=== PATIENT | male | born 1930 | race Hispanic/Latino ===

== ENCOUNTER 2017-10-12 10:44 | Inpatient (IN) | payer OTHER ==
[~2017-10-12] VITALS: Ht 154.9 cm; Wt 64.3 kg
[2017-10-12 11:17] LABS: BASOPHILS % (AUTO) 0.8 % (0.0-5.0); EOSINOPHILS % (AUTO) 2.9 % (0.0-8.0); HEMATOCRIT 36.8 % (42-54); LYMPHOCYTES % (AUTO) 31.1 % (21.0-51.0); MEAN CORPUSCULAR HEMOGLOBIN 30.2 pg (27.0-33.0); MEAN CORPUSCULAR HGB CONC 35.1 g/dL (32.0-36.0); MEAN CORPUSCULAR VOLUME 86.1 fL (79-99); MONOCYTES % (AUTO) 7.1 % (3.0-13.0); NEUTROPHILS % (AUTO) 58.1 % (40.0-77.0); PLATELET COUNT (AUTO) 219 K/uL (130-400); RED BLOOD CELL COUNT(AUTO) 4.27 MIL/uL (4.50-6.20); RED CELL DISTRIBUTION WIDTH 13.5 % (11.0-15.5); WHITE BLOOD COUNT (AUTO) 7.5 K/uL (4.8-10.8)
[2017-10-12 11:29] LABS: CREATININE 1.5 mg/dL (0.5-1.5); POTASSIUM 4.5 mmol/L (3.5-5.1)
[2017-10-12 11:34] LABS: ALBUMIN 3.3 g/dL (3.5-5.0); BILIRUBIN,TOTAL 0.6 mg/dL (0.2-1.0)
[2017-10-12 11:39] LABS: INR 1.05 (0.85-1.15); PARTIAL THROMBOPLASTIN TIME 25.1 SEC (26.3-35.5)
[2017-10-12 15:20] VITALS: BP 165/79
[2017-10-12 15:39] LABS: HEMATOCRIT 33.3 % (42-54)
[2017-10-12] MEDS ORDERED: LINA5TAB PO (16:09)
[2017-10-12] MEDS ORDERED: MULT-1258 PO (16:09)
[2017-10-12] MEDS ORDERED: LEVO25TA54 PO (16:09)
[2017-10-12] MEDS ORDERED: GABA-531 PO (16:09)
[2017-10-12] MEDS ORDERED: METO25TA6 PO (16:09)
[2017-10-12] MEDS ORDERED: [UNRECOGNIZED DRUG - OTHER] (16:09)
[2017-10-12] MEDS: PANTOPRAZOLE 40 MG/VIAL IVP SCH (18:53)
[2017-10-12 20:00] VITALS: BP 139/80
[2017-10-12 21:29] LABS: HEMATOCRIT 34.7 % (42-54)
[2017-10-13] VITALS (7 sets, daily range): BP systolic 108–162; BP diastolic 55–86
[2017-10-13] MEDS ORDERED: ACETAMINOPHEN 325 MG TAB PO PRN (00:15)
[2017-10-13] MEDS ORDERED: ONDANSETRON HCL 4 MG/2 ML VIAL IV PRN (00:15)
[2017-10-13] MEDS ORDERED: SODIUM CHLORIDE 0.9% 100 ML IV ONE (00:33)
[2017-10-13] MEDS: LACTATED RINGERS 1000ML 1,000 ML IV SCH ×2 (00:58→09:49)
[2017-10-13] MEDS: PANTOPRAZOLE 40 MG/VIAL IVP SCH ×2 (01:58→19:15)
[2017-10-13 03:30] LABS: HEMATOCRIT 31.9 % (42-54)
[2017-10-13] MEDS: INSULIN LISPRO 100 UNIT/ML 3ML SQ SCH ×4 (09:48→21:00)
[2017-10-13] MEDS: PANTOPRAZOLE SODIUM 80 MG in SODIUM CHLORIDE 0.9% 100 ML IV SCH ×2 (09:49→23:52)
[2017-10-13 15:41] LABS: HEMATOCRIT 31.9 % (42-54)
[2017-10-13] MEDS ORDERED: PEG 3350/NA SULF,BICARB,CL/KCL 4000 ML SOLN PO SCH (17:00)
[2017-10-13 21:45] LABS: HEMATOCRIT 29.2 % (42-54)
[2017-10-14] VITALS (17 sets, daily range): BP systolic 121–182; BP diastolic 52–94
[2017-10-14] MEDS: LACTATED RINGERS 1000ML 1,000 ML IV SCH ×4 (05:10→17:24)
[2017-10-14 06:27] LABS: BASOPHILS % (AUTO) 0.4 % (0.0-5.0); EOSINOPHILS % (AUTO) 2.2 % (0.0-8.0); HEMATOCRIT 27.1 % (42-54); LYMPHOCYTES % (AUTO) 36.8 % (21.0-51.0); MEAN CORPUSCULAR HGB CONC 35.1 g/dL (32.0-36.0); MEAN CORPUSCULAR VOLUME 85.5 fL (79-99); MONOCYTES % (AUTO) 7.1 % (3.0-13.0); NEUTROPHILS % (AUTO) 53.5 % (40.0-77.0); NUCLEATED RED BLOOD CELLS 0.1 % (0.0-0.19); PLATELET COUNT (AUTO) 187 K/uL (130-400); RED BLOOD CELL COUNT(AUTO) 3.18 MIL/uL (4.50-6.20); RED CELL DISTRIBUTION WIDTH 13.5 % (11.0-15.5); WHITE BLOOD COUNT (AUTO) 6.3 K/uL (4.8-10.8)
[2017-10-14 06:34] LABS: CREATININE 1.2 mg/dL (0.5-1.5); POTASSIUM 3.9 mmol/L (3.5-5.1)
[2017-10-14] MEDS: PANTOPRAZOLE SODIUM 80 MG in SODIUM CHLORIDE 0.9% 100 ML IV SCH (08:03)
[2017-10-14] MEDS: INSULIN LISPRO 100 UNIT/ML 3ML SQ SCH ×4 (08:06→21:45)
[2017-10-14] MEDS ORDERED: MIDAZOLAM HCL 1 MG/ML 2ML VIAL ONE (10:07)
[2017-10-14] MEDS ORDERED: MEPERIDINE-PF 50 MG/ML SYG ONE (10:07)
[2017-10-14] MEDS: PANTOPRAZOLE SODIUM 80 MG in SODIUM CHLORIDE 0.9% 100 ML IV NR ×2 (12:25→23:07)
[2017-10-14 15:53] LABS: HEMATOCRIT 23.9 % (42-54); MEAN CORPUSCULAR HEMOGLOBIN 29.8 pg (27.0-33.0); MEAN CORPUSCULAR HGB CONC 34.8 g/dL (32.0-36.0); MEAN CORPUSCULAR VOLUME 85.8 fL (79-99); PLATELET COUNT (AUTO) 163 K/uL (130-400); RED BLOOD CELL COUNT(AUTO) 2.79 MIL/uL (4.50-6.20); RED CELL DISTRIBUTION WIDTH 13.4 % (11.0-15.5); WHITE BLOOD COUNT (AUTO) 6.8 K/uL (4.8-10.8)
[2017-10-14] MEDS ORDERED: DiphenhydrAMINE HCL 50 MG/ML VIAL ONE (20:31)
[2017-10-14] MEDS ORDERED: DiphenhydrAMINE HCL 50 MG/ML VIAL IV PRN (21:15)
[2017-10-14] MEDS: HYDRALAZINE HCL 20 MG/ML VIAL IV PRN (22:28)
[2017-10-15] VITALS (7 sets, daily range): BP systolic 122–180; BP diastolic 69–103
[2017-10-15] MEDS: LACTATED RINGERS 1000ML 1,000 ML IV SCH (01:00)
[2017-10-15] MEDS: INSULIN LISPRO 100 UNIT/ML 3ML SQ SCH ×4 (06:29→21:00)
[2017-10-15 06:30] LABS: HEMATOCRIT 31.8 % (42-54); MEAN CORPUSCULAR HEMOGLOBIN 29.2 pg (27.0-33.0); MEAN CORPUSCULAR HGB CONC 34.2 g/dL (32.0-36.0); MEAN CORPUSCULAR VOLUME 85.2 fL (79-99); PLATELET COUNT (AUTO) 177 K/uL (130-400); RED BLOOD CELL COUNT(AUTO) 3.73 MIL/uL (4.50-6.20); RED CELL DISTRIBUTION WIDTH 13.7 % (11.0-15.5); WHITE BLOOD COUNT (AUTO) 6.9 K/uL (4.8-10.8)
[2017-10-15 06:39] LABS: CREATININE 1.1 mg/dL (0.5-1.5); POTASSIUM 3.4 mmol/L (3.5-5.1)
[2017-10-15] MEDS: PANTOPRAZOLE SODIUM 80 MG in SODIUM CHLORIDE 0.9% 100 ML IV NR ×2 (09:06→16:34)
[2017-10-15] MEDS ORDERED: MAGNESIUM CITRATE 296 ML SOLUTION PO SCH (12:00)
[2017-10-15] MEDS ORDERED: METF10004 PO (13:03)
[2017-10-15] MEDS ORDERED: AEC81 PO (13:03)
[2017-10-15] MEDS ORDERED: GLIP10TA9 PO (13:03)
[2017-10-15] MEDS ORDERED: AMLO2.5T PO (13:03)
[2017-10-15] MEDS ORDERED: LOSA100T29 PO (13:03)
[2017-10-15] MEDS: HYDRALAZINE HCL 20 MG/ML VIAL IV PRN (13:04)
[2017-10-15 14:17] LABS: MEAN CORPUSCULAR HEMOGLOBIN 29.7 pg (27.0-33.0); MEAN CORPUSCULAR HGB CONC 34.7 g/dL (32.0-36.0); MEAN CORPUSCULAR VOLUME 85.7 fL (79-99); NUCLEATED RED BLOOD CELLS 0.1 % (0.0-0.19); PLATELET COUNT (AUTO) 225 K/uL (130-400); RED BLOOD CELL COUNT(AUTO) 4.09 MIL/uL (4.50-6.20); RED CELL DISTRIBUTION WIDTH 13.7 % (11.0-15.5); WHITE BLOOD COUNT (AUTO) 9.5 K/uL (4.8-10.8)
[2017-10-15] MEDS: GABAPENTIN 300 MG CAPSULE PO SCH ×2 (18:26→20:21)
[2017-10-15] MEDS: METFORMIN HCL 500 MG TABLET PO SCH (18:26)
[2017-10-15] MEDS: METOPROLOL TARTRATE 25 MG TAB PO SCH (20:21)
[2017-10-16] VITALS (25 sets, daily range): BP systolic 79–150; BP diastolic 30–79
[2017-10-16 04:33] LABS: BASOPHILS % (AUTO) 0.8 % (0.0-5.0); EOSINOPHILS % (AUTO) 3.5 % (0.0-8.0); HEMATOCRIT 34.8 % (42-54); LYMPHOCYTES % (AUTO) 36.4 % (21.0-51.0); MEAN CORPUSCULAR HEMOGLOBIN 30.4 pg (27.0-33.0); MEAN CORPUSCULAR HGB CONC 35.5 g/dL (32.0-36.0); MEAN CORPUSCULAR VOLUME 85.8 fL (79-99); NEUTROPHILS % (AUTO) 50.3 % (40.0-77.0); NUCLEATED RED BLOOD CELLS 0.1 % (0.0-0.19); PLATELET COUNT (AUTO) 58 K/uL (130-400); RED BLOOD CELL COUNT(AUTO) 4.05 MIL/uL (4.50-6.20); RED CELL DISTRIBUTION WIDTH 13.7 % (11.0-15.5); WHITE BLOOD COUNT (AUTO) 7.1 K/uL (4.8-10.8)
[2017-10-16 04:47] LABS: CREATININE 1.1 mg/dL (0.5-1.5); POTASSIUM 3.8 mmol/L (3.5-5.1)
[2017-10-16] MEDS: INSULIN LISPRO 100 UNIT/ML 3ML SQ SCH ×4 (06:11→21:00)
[2017-10-16] MEDS: METFORMIN HCL 500 MG TABLET PO SCH ×2 (06:23→16:30)
[2017-10-16] MEDS: LEVOTHYROXINE 25 MCG TABLET PO SCH (06:23)
[2017-10-16] MEDS: METOPROLOL TARTRATE 25 MG TAB PO SCH ×2 (08:28→20:46)
[2017-10-16] MEDS: MULTIVITAMIN TABLET PO SCH (08:30)
[2017-10-16] MEDS: AMLODIPINE BESYLATE 2.5 MG TAB PO SCH (08:30)
[2017-10-16] MEDS: GLIPIZIDE 5 MG TABLET PO SCH (08:30)
[2017-10-16] MEDS: LINAGLIPTIN 5 MG TABLET PO SCH (08:30)
[2017-10-16] MEDS: LOSARTAN 100 MG TABLET PO SCH (08:30)
[2017-10-16] MEDS: GABAPENTIN 300 MG CAPSULE PO SCH ×3 (08:30→20:46)
[2017-10-16] MEDS: LACTATED RINGERS 1000ML 1,000 ML IV SCH (10:01)
[2017-10-16 10:25] LABS: BASOPHILS % (AUTO) 0.4 % (0.0-5.0); EOSINOPHILS % (AUTO) 3.2 % (0.0-8.0); HEMATOCRIT 34.1 % (42-54); LYMPHOCYTES % (AUTO) 30.8 % (21.0-51.0); MEAN CORPUSCULAR HEMOGLOBIN 29.7 pg (27.0-33.0); MEAN CORPUSCULAR HGB CONC 34.7 g/dL (32.0-36.0); MEAN CORPUSCULAR VOLUME 85.6 fL (79-99); MONOCYTES % (AUTO) 7.5 % (3.0-13.0); NEUTROPHILS % (AUTO) 58.1 % (40.0-77.0); PLATELET COUNT (AUTO) 195 K/uL (130-400); RED BLOOD CELL COUNT(AUTO) 3.98 MIL/uL (4.50-6.20); RED CELL DISTRIBUTION WIDTH 13.7 % (11.0-15.5); WHITE BLOOD COUNT (AUTO) 7.1 K/uL (4.8-10.8)
[2017-10-16] MEDS ORDERED: SODIUM CHLORIDE 0.9% 1000ML 1,000 ML IV ONE (12:59)
[2017-10-16] MEDS ORDERED: NEOSTIGMINE 5MG/5ML SYR IV ONE (13:54)
[2017-10-16] MEDS ORDERED: PROPOFOL 10 MG/ML 20ML VIAL IV ONE ×2 (13:54→16:36)
[2017-10-16] MEDS ORDERED: MIDAZOLAM HCL 1 MG/ML 2ML VIAL ONE ×3 (13:54→16:36)
[2017-10-16] MEDS ORDERED: DEXAMETHASONE SOD PHOSPHATE 10MG/ML 1ML VIAL ONE ×2 (13:54→16:35)
[2017-10-16] MEDS ORDERED: GLYCOPYRROLATE 0.2 MG/ML 5 ML VIAL ONE (13:54)
[2017-10-16] MEDS ORDERED: FENTANYL CITRATE PF 50 MCG/1 ML 2ML VIAL ONE ×2 (13:54→16:36)
[2017-10-16] MEDS ORDERED: LIDOCAINE PF 2% 5ML ABBOJECT ONE ×2 (13:54→16:35)
[2017-10-16] MEDS ORDERED: ROPIVACAINE 0.5% 5MG/ML 30ML IJ ONE (14:17)
[2017-10-16] MEDS ORDERED: ALBUMIN (HUMAN) 5% 250 ML IV ONE (14:33)
[2017-10-16] MEDS ORDERED: EPHEDRINE SULFATE 50 MG/ML AMPULE ONE (14:35)
[2017-10-16] MEDS: CEFOXITIN SODIUM 2 GM VIAL ONE (14:40)
[2017-10-16] MEDS: SODIUM CHLORIDE 0.9% 1000ML 1,000 ML IV SCH ×2 (16:21→20:47)
[2017-10-16] MEDS ORDERED: ROCURONIUM BROMIDE 10MG/1ML 5ML VL ONE (16:35)
[2017-10-16] MEDS ORDERED: LIDOCAINE HCL 4% LTA SOL 4 ML VIAL ONE (16:35)
[2017-10-16] MEDS ORDERED: LIDOCAINE HCL MPF 1% 5ML VIAL ONE (16:35)
[2017-10-16] MEDS ORDERED: MEPERIDINE-PF 50 MG/ML SYG ONE (16:52)
[2017-10-16] MEDS ORDERED: HEPARIN SODIUM 1000UNIT/ML 10ML VIAL ONE (16:54)
[2017-10-16] MEDS ORDERED: ONDANSETRON HCL 4 MG/2 ML VIAL IVP PRN ×2 (19:30)
[2017-10-16] MEDS ORDERED: NALOXONE HCL 0.4 MG/1 ML ML IVP PRN (19:30)
[2017-10-16] MEDS ORDERED: PROMETHAZINE HCL 25 MG/ML 1ML AMPULE IM PRN (19:30)
[2017-10-16] MEDS ORDERED: HYDROCODONE/ACETAMINOPHEN 5/325 MG TAB PO PRN (19:30)
[2017-10-16] MEDS ORDERED: METOCLOPRAMIDE 10 MG/2 ML VIAL IVP PRN (19:30)
[2017-10-16] MEDS ORDERED: ROPIVACAINE 0.2%200ML EPIDURAL 200 ML EP SCH (19:30)
[2017-10-16] MEDS ORDERED: EPHEDRINE SULFATE 50 MG/ML AMPULE IVP PRN (19:30)
[2017-10-16] MEDS ORDERED: ONDANSETRON HCL 4 MG/2 ML 8 MG in SODIUM CHLORIDE 0.9% 50 ML IVP NR (19:30)
[2017-10-16] MEDS ORDERED: DiphenhydrAMINE HCL 50 MG/ML VIAL IVP PRN (19:30)
[2017-10-16] MEDS: CEFOXITIN SODIUM 1 GM VIAL IVP SCH (20:46)
[2017-10-16] MEDS ORDERED: CEFOXITIN 1GM+NS 100ML 100 ML IV SCH (21:00)
[2017-10-17] VITALS: BP 101/52
[2017-10-17] MEDS ORDERED: MORPHINE SULFATE 4 MG/1ML SYG ONE ×4 (02:01→22:55)
[2017-10-17] MEDS: CEFOXITIN SODIUM 1 GM VIAL IVP SCH ×2 (02:55→08:53)
[2017-10-17 04:03] VITALS: BP 133/56
[2017-10-17 04:37] LABS: HEMATOCRIT 32.4 % (42-54); MEAN CORPUSCULAR HEMOGLOBIN 29.2 pg (27.0-33.0); MEAN CORPUSCULAR VOLUME 88.6 fL (79-99); PLATELET COUNT (AUTO) 210 K/uL (130-400); RED BLOOD CELL COUNT(AUTO) 3.66 MIL/uL (4.50-6.20); RED CELL DISTRIBUTION WIDTH 14.1 % (11.0-15.5); WHITE BLOOD COUNT (AUTO) 15.8 K/uL (4.8-10.8)
[2017-10-17 04:48] LABS: CREATININE 1.9 mg/dL (0.5-1.5); MAGNESIUM 1.6 mg/dL (1.80-2.40); POTASSIUM 4.1 mmol/L (3.5-5.1)
[2017-10-17] MEDS: LEVOTHYROXINE 25 MCG TABLET PO SCH (07:30)
[2017-10-17] MEDS: METFORMIN HCL 500 MG TABLET PO SCH ×2 (07:30→16:30)
[2017-10-17] MEDS: INSULIN LISPRO 100 UNIT/ML 3ML SQ SCH ×3 (07:30→17:34)
[2017-10-17 08:16] VITALS: BP 148/61
[2017-10-17] MEDS: GABAPENTIN 300 MG CAPSULE PO SCH ×2 (08:17→14:00)
[2017-10-17] MEDS: LOSARTAN 100 MG TABLET PO SCH (08:17)
[2017-10-17] MEDS: AMLODIPINE BESYLATE 2.5 MG TAB PO SCH (08:17)
[2017-10-17] MEDS: METOPROLOL TARTRATE 25 MG TAB PO SCH (08:17)
[2017-10-17] MEDS: MULTIVITAMIN TABLET PO SCH (08:17)
[2017-10-17] MEDS: GLIPIZIDE 5 MG TABLET PO SCH (08:17)
[2017-10-17] MEDS: LINAGLIPTIN 5 MG TABLET PO SCH (08:18)
[2017-10-17] MEDS ORDERED: SODIUM CHLORIDE 0.9% 500ML 500 ML IV ONE (10:00)
[2017-10-17] MEDS ORDERED: MAGNESIUM 2GM PREMIX 50ML 50 ML IV SCH (10:00)
[2017-10-17] MEDS: ROPIVACAINE 0.2% 100ML VIAL 100 ML IJ SCH (10:42)
[2017-10-17 11:41] VITALS: BP 147/65
[2017-10-17 16:00] VITALS: BP 113/54
[2017-10-17] MEDS: SODIUM CHLORIDE 0.9% 1000ML 1,000 ML IV SCH (17:29)
[2017-10-17 19:00] VITALS: BP 95/50
[2017-10-17] MEDS ORDERED: ROPIVACAINE 0.2%200ML EPIDURAL 200 ML EP SCH (21:00)
[2017-10-17] MEDS: INSULIN GLARGINE 100 UNITS/ML 10 ML VIAL SQ SCH (23:06)
[2017-10-18] VITALS (7 sets, daily range): BP systolic 135–172; BP diastolic 62–84
[2017-10-18] MEDS: ROPIVACAINE 0.2% 100ML VIAL 100 ML IJ SCH ×2 (01:46→13:37)
[2017-10-18] MEDS ORDERED: MAGNESIUM 2GM PREMIX 50ML 50 ML IV ONE (03:04)
[2017-10-18] MEDS ORDERED: MAGNESIUM 2GM PREMIX 50ML 50 ML IV PRN (03:15)
[2017-10-18 04:33] LABS: HEMATOCRIT 31.6 % (42-54); MEAN CORPUSCULAR HEMOGLOBIN 29.8 pg (27.0-33.0); MEAN CORPUSCULAR HGB CONC 33.3 g/dL (32.0-36.0); MEAN CORPUSCULAR VOLUME 89.5 fL (79-99); PLATELET COUNT (AUTO) 213 K/uL (130-400); RED BLOOD CELL COUNT(AUTO) 3.53 MIL/uL (4.50-6.20)
[2017-10-18 04:57] LABS: CREATININE 2.3 mg/dL (0.5-1.5); MAGNESIUM 2.5 mg/dL (1.80-2.40); POTASSIUM 4.2 mmol/L (3.5-5.1)
[2017-10-18] MEDS: SODIUM CHLORIDE 0.9% 1000ML 1,000 ML IV SCH ×2 (05:00→18:44)
[2017-10-18] MEDS ORDERED: PHARMACY COMMUNICATION MISC SCH (10:00)
[2017-10-18] MEDS: [UNRECOGNIZED DRUG - OTHER] SQ SCH ×2 (12:34→18:00)
[2017-10-18] MEDS: SODIUM BICARBONATE 650 MG TAB PO SCH (20:10)
[2017-10-18] MEDS: INSULIN GLARGINE 100 UNITS/ML 10 ML VIAL SQ SCH (21:00)
[2017-10-18] MEDS ORDERED: MORPHINE SULFATE 4 MG/1ML SYG ONE (21:44)
[2017-10-19] MEDS: ROPIVACAINE 0.2% 100ML VIAL 100 ML IJ SCH ×2 (01:00→08:36)
[2017-10-19] MEDS: HYDRALAZINE HCL 20 MG/ML VIAL IV PRN (01:24)
[2017-10-19] MEDS ORDERED: MORPHINE SULFATE 4 MG/1ML SYG ONE (01:38)
[2017-10-19] MEDS ORDERED: HYDROMORPHONE 1 MG/1 ML AMP IVP ONE (02:00)
[2017-10-19 04:00] VITALS: BP 147/78
[2017-10-19] MEDS ORDERED: HYDROMORPHONE 1 MG/1 ML AMP ONE (04:09)
[2017-10-19 04:56] LABS: MEAN CORPUSCULAR HGB CONC 34.2 g/dL (32.0-36.0); MEAN CORPUSCULAR VOLUME 87.7 fL (79-99); PLATELET COUNT (AUTO) 207 K/uL (130-400); RED BLOOD CELL COUNT(AUTO) 3.31 MIL/uL (4.50-6.20); WHITE BLOOD COUNT (AUTO) 10.4 K/uL (4.8-10.8)
[2017-10-19 05:14] LABS: ALBUMIN 2.2 g/dL (3.5-5.0); BILIRUBIN,TOTAL 0.3 mg/dL (0.2-1.0); CREATININE 1.7 mg/dL (0.5-1.5); MAGNESIUM 2.2 mg/dL (1.80-2.40); PHOSPHORUS 2.1 mg/dL (2.5-4.9); POTASSIUM 3.9 mmol/L (3.5-5.1); TOTAL PROTEIN, SERUM 5.3 g/dL (6.0-8.3); URIC ACID 6.6 mg/dL (2.6-7.2)
[2017-10-19 05:37] LABS: BAND NEUTROPHILS % (MANUAL) 1 % (0-2); BASOPHILS % (MANUAL) 1 % (0-2); LYMPHOCYTES % (MANUAL) 3 % (22-44); MAN.DIFF COMMENT-IMPRESSION MANUAL DIFFERENTIAL; MONOCYTES % (MANUAL) 5 % (2-9); PLATELET MORPHOLOGY COMMENT ADEQUATE; REACTIVE LYMPHOCYTES 1 % (0-0); SEGMENTED NEUTROPHILS % 89 % (40-70)
[2017-10-19] MEDS: [UNRECOGNIZED DRUG - OTHER] SQ SCH ×4 (06:00→18:00)
[2017-10-19] MEDS: SODIUM CHLORIDE 0.9% 1000ML 1,000 ML IV SCH ×2 (06:02→19:11)
[2017-10-19 08:37] VITALS: BP 166/72
[2017-10-19] MEDS: SODIUM BICARBONATE 650 MG TAB PO SCH ×2 (09:00→20:18)
[2017-10-19] MEDS: THIAMINE HCL 100 MG TABLET PO SCH (09:00)
[2017-10-19] MEDS: FOLIC ACID/VITAMIN B COMP W-C 1 MG CAPSULE PO SCH (09:00)
[2017-10-19 12:31] VITALS: BP 93/82
[2017-10-19 17:08] VITALS: BP 180/88
[2017-10-19 19:29] VITALS: BP 152/98
[2017-10-19] MEDS: INSULIN GLARGINE 100 UNITS/ML 10 ML VIAL SQ SCH (20:57)
[2017-10-19 23:23] VITALS: BP 137/83
[2017-10-20] VITALS (7 sets, daily range): BP systolic 155–189; BP diastolic 73–107
[2017-10-20] MEDS: HYDROCODONE/ACETAMINOPHEN 5/325 MG TAB PO PRN (00:25)
[2017-10-20 00:56] LABS: CREATININE,URINE RANDOM 98 mg/dL (30-135); SODIUM,URINE RANDOM 144 mmol/l (40-220)
[2017-10-20] MEDS ORDERED: HYDROMORPHONE 1 MG/1 ML AMP ONE (02:41)
[2017-10-20] MEDS ORDERED: HYDROMORPHONE 1 MG/1 ML AMP IVP ONE (02:45)
[2017-10-20] MEDS: SODIUM CHLORIDE 0.9% 1000ML 1,000 ML IV SCH ×2 (03:54→15:41)
[2017-10-20] MEDS: HYDRALAZINE HCL 20 MG/ML VIAL IV PRN ×3 (03:54→23:34)
[2017-10-20 04:49] LABS: HEMATOCRIT 31.2 % (42-54); MEAN CORPUSCULAR HEMOGLOBIN 30.7 pg (27.0-33.0); MEAN CORPUSCULAR HGB CONC 34.7 g/dL (32.0-36.0); MEAN CORPUSCULAR VOLUME 88.6 fL (79-99); NUCLEATED RED BLOOD CELLS 0.1 % (0.0-0.19); PLATELET COUNT (AUTO) 268 K/uL (130-400); RED BLOOD CELL COUNT(AUTO) 3.53 MIL/uL (4.50-6.20); WHITE BLOOD COUNT (AUTO) 12.6 K/uL (4.8-10.8)
[2017-10-20 04:57] LABS: CREATININE 1.6 mg/dL (0.5-1.5); POTASSIUM 3.5 mmol/L (3.5-5.1)
[2017-10-20] MEDS: [UNRECOGNIZED DRUG - OTHER] SQ SCH ×5 (06:44→23:14)
[2017-10-20] MEDS ORDERED: MORPHINE SULFATE 4 MG/1ML SYG ONE ×2 (07:54→14:04)
[2017-10-20] MEDS: MORPHINE SULFATE 2 MG/ML 1ML SYG IVP PRN ×2 (07:56→14:51)
[2017-10-20] MEDS: METOPROLOL TARTRATE 25 MG TAB PO SCH ×3 (09:00→20:46)
[2017-10-20] MEDS ORDERED: METOPROLOL TARTRATE 25 MG TAB PO SCH (09:00)
[2017-10-20] MEDS: METOPROLOL TARTRATE 50 MG TAB PO SCH (10:07)
[2017-10-20] MEDS: SODIUM BICARBONATE 650 MG TAB PO SCH ×2 (10:07→20:46)
[2017-10-20] MEDS: THIAMINE HCL 100 MG TABLET PO SCH (10:07)
[2017-10-20] MEDS: FOLIC ACID/VITAMIN B COMP W-C 1 MG CAPSULE PO SCH (10:07)
[2017-10-20] MEDS ORDERED: POTASSIUM CHLORIDE 20 MEQ ERTAB PO ONE (14:03)
[2017-10-20] MEDS: AMLODIPINE BESYLATE 2.5 MG TAB PO SCH (14:06)
[2017-10-20] MEDS: FUROSEMIDE 10 MG/ML 2ML VIAL IV SCH (14:06)
[2017-10-20] MEDS ORDERED: POTASSIUM CHLORIDE 10% ELIXIR 20 MEQ/15 ML UDCUP PO PRN (14:15)
[2017-10-20] MEDS ORDERED: LIDOCAINE HCL-MPF 1% 2ML VIAL IVP PRN ×2 (14:15)
[2017-10-20] MEDS ORDERED: POTASSIUM CHLORIDE 20MEQ/100ML 100 ML IV PRN ×2 (14:15)
[2017-10-20] MEDS ORDERED: POTASSIUM CHLORIDE 20 MEQ ERTAB PO PRN (14:15)
[2017-10-20] MEDS: POTASSIUM CHLORIDE 20 MEQ ERTAB PO PRN ×2 (14:23→20:47)
[2017-10-20] MEDS: ZOLPIDEM TARTRATE 5 MG TAB PO SCH (20:46)
[2017-10-20] MEDS: INSULIN GLARGINE 100 UNITS/ML 10 ML VIAL SQ SCH (20:58)
[2017-10-21] MEDS: SODIUM CHLORIDE 0.9% 1000ML 1,000 ML IV SCH ×2 (01:03→10:19)
[2017-10-21 03:59] VITALS: BP 157/80
[2017-10-21] MEDS: [UNRECOGNIZED DRUG - OTHER] SQ SCH ×4 (06:00→23:25)
[2017-10-21] MEDS ORDERED: DEXTROSE 50%-WATER 50 ML DISP.SYRIN IV PRN (06:00)
[2017-10-21] MEDS ORDERED: GLUCAGON 1MG KIT 1 MG ML IM PRN (06:00)
[2017-10-21 07:00] LABS: BASOPHILS % (AUTO) 0.4 % (0.0-5.0); EOSINOPHILS % (AUTO) 0.2 % (0.0-8.0); HEMATOCRIT 31.9 % (42-54); LYMPHOCYTES % (AUTO) 14.4 % (21.0-51.0); MEAN CORPUSCULAR HEMOGLOBIN 28.9 pg (27.0-33.0); MEAN CORPUSCULAR HGB CONC 33.4 g/dL (32.0-36.0); MEAN CORPUSCULAR VOLUME 86.6 fL (79-99); MONOCYTES % (AUTO) 6.9 % (3.0-13.0); NEUTROPHILS % (AUTO) 78.1 % (40.0-77.0); PLATELET COUNT (AUTO) 261 K/uL (130-400); RED BLOOD CELL COUNT(AUTO) 3.69 MIL/uL (4.50-6.20); RED CELL DISTRIBUTION WIDTH 14.7 % (11.0-15.5); WHITE BLOOD COUNT (AUTO) 11.3 K/uL (4.8-10.8)
[2017-10-21 07:06] LABS: CREATININE 1.4 mg/dL (0.5-1.5)
[2017-10-21 07:14] LABS: POTASSIUM 2.9 mmol/L (3.5-5.1)
[2017-10-21 08:00] VITALS: BP 167/83
[2017-10-21] MEDS: METOPROLOL TARTRATE 50 MG TAB PO SCH (08:45)
[2017-10-21] MEDS: FOLIC ACID/VITAMIN B COMP W-C 1 MG CAPSULE PO SCH (10:20)
[2017-10-21] MEDS: THIAMINE HCL 100 MG TABLET PO SCH (10:20)
[2017-10-21] MEDS: SODIUM BICARBONATE 650 MG TAB PO SCH ×2 (10:20→20:36)
[2017-10-21] MEDS: AMLODIPINE BESYLATE 2.5 MG TAB PO SCH (10:20)
[2017-10-21] MEDS: METOPROLOL TARTRATE 25 MG TAB PO SCH ×3 (10:21→20:36)
[2017-10-21 11:00] VITALS: BP 182/99
[2017-10-21] MEDS ORDERED: POTASSIUM CHLORIDE 10% ELIXIR 20 MEQ/15 ML UDCUP PO PRN (12:15)
[2017-10-21] MEDS ORDERED: LIDOCAINE HCL-MPF 1% 2ML VIAL IV PRN (12:15)
[2017-10-21] MEDS ORDERED: POTASSIUM CHLORIDE 10MEQ/100ML 100 ML IV PRN (12:15)
[2017-10-21] MEDS ORDERED: PHARMACY COMMUNICATION MISC SCH (12:15)
[2017-10-21] MEDS: FUROSEMIDE 10 MG/ML 2ML VIAL IV SCH (13:00)
[2017-10-21] MEDS ORDERED: AMLODIPINE BESYLATE 2.5 MG TAB PO SCH (13:15)
[2017-10-21] MEDS: POTASSIUM CHLORIDE 10 MEQ/TAB.SR PO PRN ×4 (13:46→20:36)
[2017-10-21 16:00] VITALS: BP 172/91
[2017-10-21] MEDS: HYDRALAZINE HCL 20 MG/ML VIAL IV PRN ×2 (17:24→23:45)
[2017-10-21 19:35] VITALS: BP 127/62
[2017-10-21] MEDS: ZOLPIDEM TARTRATE 5 MG TAB PO SCH (20:36)
[2017-10-21] MEDS: INSULIN GLARGINE 100 UNITS/ML 10 ML VIAL SQ SCH (20:40)
[2017-10-21] MEDS ORDERED: POTASSIUM CHLORIDE 20MEQ/100ML 100 ML IV ONE (22:56)
[2017-10-21 23:52] VITALS: BP 181/91
[2017-10-22] VITALS (7 sets, daily range): BP systolic 149–167; BP diastolic 71–92
[2017-10-22] MEDS: [UNRECOGNIZED DRUG - OTHER] SQ SCH ×3 (05:45→17:25)
[2017-10-22 06:58] LABS: BASOPHILS % (AUTO) 0.4 % (0.0-5.0); EOSINOPHILS % (AUTO) 1.2 % (0.0-8.0); HEMATOCRIT 30.8 % (42-54); LYMPHOCYTES % (AUTO) 18.4 % (21.0-51.0); MEAN CORPUSCULAR HEMOGLOBIN 30.1 pg (27.0-33.0); MEAN CORPUSCULAR HGB CONC 34.8 g/dL (32.0-36.0); MEAN CORPUSCULAR VOLUME 86.6 fL (79-99); MONOCYTES % (AUTO) 8.2 % (3.0-13.0); NEUTROPHILS % (AUTO) 71.8 % (40.0-77.0); PLATELET COUNT (AUTO) 238 K/uL (130-400); RED BLOOD CELL COUNT(AUTO) 3.56 MIL/uL (4.50-6.20); RED CELL DISTRIBUTION WIDTH 14.4 % (11.0-15.5); WHITE BLOOD COUNT (AUTO) 10.4 K/uL (4.8-10.8)
[2017-10-22 07:02] LABS: CREATININE 1.1 mg/dL (0.5-1.5); MAGNESIUM 1.4 mg/dL (1.80-2.40); POTASSIUM 3.5 mmol/L (3.5-5.1)
[2017-10-22] MEDS ORDERED: MAGNESIUM SULFATE 1 GM in SODIUM CHLORIDE 0.9% 50 ML IV SCH (08:45)
[2017-10-22] MEDS: SODIUM BICARBONATE 650 MG TAB PO SCH ×2 (10:08→20:45)
[2017-10-22] MEDS: AMLODIPINE BESYLATE 5 MG TAB PO SCH (10:09)
[2017-10-22] MEDS: FOLIC ACID/VITAMIN B COMP W-C 1 MG CAPSULE PO SCH (10:09)
[2017-10-22] MEDS: THIAMINE HCL 100 MG TABLET PO SCH (10:09)
[2017-10-22] MEDS: METOPROLOL TARTRATE 25 MG TAB PO SCH ×3 (10:09→20:45)
[2017-10-22] MEDS: HYDROCODONE/ACETAMINOPHEN 5/325 MG TAB PO PRN (11:31)
[2017-10-22] MEDS: FUROSEMIDE 10 MG/ML 2ML VIAL IV SCH (13:28)
[2017-10-22] MEDS: POTASSIUM CHLORIDE 10% ELIXIR 20 MEQ/15 ML UDCUP PO PRN ×2 (16:17→18:51)
[2017-10-22] MEDS: ZOLPIDEM TARTRATE 5 MG TAB PO SCH (20:45)
[2017-10-22] MEDS: INSULIN LISPRO 100 UNIT/ML 3ML SQ SCH (20:47)
[2017-10-22] MEDS: INSULIN GLARGINE 100 UNITS/ML 10 ML VIAL SQ SCH (20:48)
[2017-10-23 03:45] VITALS: BP 144/70
[2017-10-23 05:23] LABS: BASOPHILS % (AUTO) 0.5 % (0.0-5.0); EOSINOPHILS % (AUTO) 0.7 % (0.0-8.0); HEMATOCRIT 33.1 % (42-54); MEAN CORPUSCULAR HEMOGLOBIN 29.2 pg (27.0-33.0); MEAN CORPUSCULAR HGB CONC 33.8 g/dL (32.0-36.0); MEAN CORPUSCULAR VOLUME 86.5 fL (79-99); MONOCYTES % (AUTO) 7.2 % (3.0-13.0); NEUTROPHILS % (AUTO) 76.6 % (40.0-77.0); PLATELET COUNT (AUTO) 250 K/uL (130-400); RED BLOOD CELL COUNT(AUTO) 3.82 MIL/uL (4.50-6.20); RED CELL DISTRIBUTION WIDTH 14.5 % (11.0-15.5); WHITE BLOOD COUNT (AUTO) 13.9 K/uL (4.8-10.8)
[2017-10-23 05:37] LABS: CREATININE 1.2 mg/dL (0.5-1.5); MAGNESIUM 1.3 mg/dL (1.80-2.40); POTASSIUM 3.4 mmol/L (3.5-5.1)
[2017-10-23] MEDS: POTASSIUM CHLORIDE 10% ELIXIR 20 MEQ/15 ML UDCUP PO PRN ×2 (05:57→09:18)
[2017-10-23] MEDS: HYDROCODONE/ACETAMINOPHEN 5/325 MG TAB PO PRN (05:57)
[2017-10-23] MEDS: INSULIN LISPRO 100 UNIT/ML 3ML SQ SCH ×4 (06:06→20:58)
[2017-10-23 08:00] VITALS: BP 155/77
[2017-10-23] MEDS: FOLIC ACID/VITAMIN B COMP W-C 1 MG CAPSULE PO SCH (09:18)
[2017-10-23] MEDS: AMLODIPINE BESYLATE 5 MG TAB PO SCH (09:18)
[2017-10-23] MEDS: METOPROLOL TARTRATE 25 MG TAB PO SCH ×3 (09:18→20:49)
[2017-10-23] MEDS: SODIUM BICARBONATE 650 MG TAB PO SCH ×2 (09:18→20:49)
[2017-10-23] MEDS: THIAMINE HCL 100 MG TABLET PO SCH (09:18)
[2017-10-23] MEDS ORDERED: MAGNESIUM 2GM PREMIX 50ML 50 ML IV SCH (10:30)
[2017-10-23 12:00] VITALS: BP 169/75
[2017-10-23] MEDS: HYDRALAZINE HCL 20 MG/ML VIAL IV PRN (13:01)
[2017-10-23] MEDS: FUROSEMIDE 10 MG/ML 2ML VIAL IV SCH (14:27)
[2017-10-23 16:00] VITALS: BP 132/65
[2017-10-23 19:20] VITALS: BP 123/68
[2017-10-23] MEDS: MAGNESIUM OXIDE 400 MG TABLET PO SCH (20:49)
[2017-10-23] MEDS: INSULIN GLARGINE 100 UNITS/ML 10 ML VIAL SQ SCH (20:57)
[2017-10-23] MEDS: ZOLPIDEM TARTRATE 5 MG TAB PO SCH (20:58)
[2017-10-23 23:15] VITALS: BP 121/65
[2017-10-24] MEDS ORDERED: HYDROCODONE/ACETAMINOPHEN 5/325 MG TAB ONE (02:38)
[2017-10-24 03:20] VITALS: BP 139/66
[2017-10-24 04:42] LABS: HEMATOCRIT 30.9 % (42-54); MEAN CORPUSCULAR HEMOGLOBIN 30.6 pg (27.0-33.0); MEAN CORPUSCULAR HGB CONC 35.3 g/dL (32.0-36.0); MEAN CORPUSCULAR VOLUME 86.7 fL (79-99); PLATELET COUNT (AUTO) 268 K/uL (130-400); RED BLOOD CELL COUNT(AUTO) 3.56 MIL/uL (4.50-6.20); RED CELL DISTRIBUTION WIDTH 14.2 % (11.0-15.5); WHITE BLOOD COUNT (AUTO) 13.1 K/uL (4.8-10.8)
[2017-10-24 04:52] LABS: CREATININE 1.4 mg/dL (0.5-1.5); POTASSIUM 3.6 mmol/L (3.5-5.1)
[2017-10-24] MEDS: POTASSIUM CHLORIDE 10% ELIXIR 20 MEQ/15 ML UDCUP PO PRN (05:31)
[2017-10-24] MEDS: INSULIN LISPRO 100 UNIT/ML 3ML SQ SCH ×4 (06:11→21:26)
[2017-10-24 07:00] VITALS: BP 141/78
[2017-10-24] MEDS: MAGNESIUM OXIDE 400 MG TABLET PO SCH ×2 (10:59→21:17)
[2017-10-24] MEDS: FOLIC ACID/VITAMIN B COMP W-C 1 MG CAPSULE PO SCH (10:59)
[2017-10-24] MEDS: SODIUM BICARBONATE 650 MG TAB PO SCH ×2 (10:59→21:17)
[2017-10-24] MEDS: METOPROLOL TARTRATE 25 MG TAB PO SCH ×3 (10:59→21:17)
[2017-10-24] MEDS: AMLODIPINE BESYLATE 5 MG TAB PO SCH (10:59)
[2017-10-24] MEDS: THIAMINE HCL 100 MG TABLET PO SCH (10:59)
[2017-10-24 11:00] VITALS: BP 140/65
[2017-10-24] MEDS: POTASSIUM CHLORIDE 10 MEQ/TAB.SR PO PRN (11:04)
[2017-10-24 15:00] VITALS: BP 135/63
[2017-10-24 19:40] VITALS: BP 120/63
[2017-10-24] MEDS: ZOLPIDEM TARTRATE 5 MG TAB PO SCH (21:17)
[2017-10-24] MEDS: INSULIN GLARGINE 100 UNITS/ML 10 ML VIAL SQ SCH (21:23)
[2017-10-24 23:45] VITALS: BP 140/63
[2017-10-25 04:10] VITALS: BP 151/67
[2017-10-25 04:31] LABS: BASOPHILS % (AUTO) 0.4 % (0.0-5.0); EOSINOPHILS % (AUTO) 0.2 % (0.0-8.0); HEMATOCRIT 34.3 % (42-54); LYMPHOCYTES % (AUTO) 8.9 % (21.0-51.0); MEAN CORPUSCULAR HEMOGLOBIN 29.3 pg (27.0-33.0); MEAN CORPUSCULAR HGB CONC 33.8 g/dL (32.0-36.0); MEAN CORPUSCULAR VOLUME 86.7 fL (79-99); NEUTROPHILS % (AUTO) 83.5 % (40.0-77.0); PLATELET COUNT (AUTO) 304 K/uL (130-400); RED BLOOD CELL COUNT(AUTO) 3.96 MIL/uL (4.50-6.20); RED CELL DISTRIBUTION WIDTH 14.3 % (11.0-15.5); WHITE BLOOD COUNT (AUTO) 11.9 K/uL (4.8-10.8)
[2017-10-25 04:53] LABS: CREATININE 1.3 mg/dL (0.5-1.5); POTASSIUM 3.5 mmol/L (3.5-5.1)
[2017-10-25] MEDS: INSULIN LISPRO 100 UNIT/ML 3ML SQ SCH (05:33)
[2017-10-25 08:41] VITALS: BP 148/77
[2017-10-25] MEDS: METOPROLOL TARTRATE 25 MG TAB PO SCH ×3 (09:04→20:53)
[2017-10-25] MEDS: SODIUM BICARBONATE 650 MG TAB PO SCH ×2 (09:04→20:53)
[2017-10-25] MEDS: AMLODIPINE BESYLATE 5 MG TAB PO SCH (09:04)
[2017-10-25] MEDS: FOLIC ACID/VITAMIN B COMP W-C 1 MG CAPSULE PO SCH (09:04)
[2017-10-25] MEDS: THIAMINE HCL 100 MG TABLET PO SCH (09:04)
[2017-10-25] MEDS: MAGNESIUM OXIDE 400 MG TABLET PO SCH ×2 (09:04→20:53)
[2017-10-25 12:00] VITALS: BP 131/58
[2017-10-25] MEDS ORDERED: HYDROCODONE/ACETAMINOPHEN 5/325 MG TAB PO PRN (12:45)
[2017-10-25] MEDS: INSULIN HUMULIN R 100 UNIT/ML 3ML SQ SCH ×3 (12:47→21:01)
[2017-10-25] MEDS: HYDROCODONE/ACETAMINOPHEN 5/325 MG TAB PO PRN ×2 (12:48→20:54)
[2017-10-25 16:00] VITALS: BP 123/79
[2017-10-25 19:55] VITALS: BP 131/66
[2017-10-25] MEDS: INSULIN GLARGINE 100 UNITS/ML 10 ML VIAL SQ SCH (21:00)
== END 2017-10-25 21:10 | DRG 329 ==
LOC: EDH 10:44 → EDHIP 13:40 → 3DH 15:21
PROVIDERS: ADMIT Family Medicine; ATTEND Family Medicine
PROC: 0DJ08ZZ Inspection of Upper Intestinal Tract, Via Natural or Artificial Opening Endoscopic (ICD-10-PCS; 2017-10-14)
PROC: 30233N1 Transfusion of Nonautologous Red Blood Cells into Peripheral Vein, Percutaneous Approach (ICD-10-PCS; 2017-10-14)
PROC: 0D1 Gastrointestinal System, Bypass (ICD-10-PCS; 2017-10-16 14:19)
PROC: 0DBK8ZZ Excision of Ascending Colon, Via Natural or Artificial Opening Endoscopic (ICD-10-PCS; principal; 2017-10-18)
PROC: 0DBM8ZZ Excision of Descending Colon, Via Natural or Artificial Opening Endoscopic (ICD-10-PCS; 2017-10-18)
DX: K57.31 Diverticulosis of large intestine without perforation or abscess with bleeding (principal); N17.0 Acute kidney failure with tubular necrosis; I50.31 Acute diastolic (congestive) heart failure; K56.609 Unspecified intestinal obstruction, unspecified as to partial versus complete obstruction; E11.21 Type 2 diabetes mellitus with diabetic nephropathy; E11.649 Type 2 diabetes mellitus with hypoglycemia without coma; D62 Acute posthemorrhagic anemia; E86.0 Dehydration; I48.0 Paroxysmal atrial fibrillation; E11.22 Type 2 diabetes mellitus with diabetic chronic kidney disease; E83.42 Hypomagnesemia; E87.2 Acidosis; I13.0 Hypertensive heart and chronic kidney disease with heart failure and stage 1 through stage 4 chronic kidney disease, or unspecified chronic kidney disease; D12.0 Benign neoplasm of cecum; E03.9 Hypothyroidism, unspecified; N42.9 Disorder of prostate, unspecified; E78.5 Hyperlipidemia, unspecified; E87.6 Hypokalemia; N18.9 Chronic kidney disease, unspecified; Z86.010 Personal history of colon polyps; Z90.49 Acquired absence of other specified parts of digestive tract
CPT/HCPCS: 36415; 36430; 71045; 73090; 74176; 76770; 78278; 80048; 80053; 82270; 82570; 82948; 83735; 83880; 83935; 84100; 84300; 84550; 85014; 85018; 85025; 85027; 85610; 85730; 86850; 86900; 86901; 86922; 88305; 88307; 93005; 97039; 99152; 99153; A4218; A4344; A9512; C9113; J0360; J0694; J1100; J1170; J1200; J1644; J1815; J1940; J2001; J2175; J2250; J2270; J2405; J2704; J2710; J2765; J2795; J3010; J3475; J3480; J3490; J7030; J7070; J7120; P9016; P9045